=== PATIENT | female | born 1980 | race Caucasian/White ===

== ENCOUNTER 2017-05-01 14:36 | Emergency (ER) | payer OTHER ==
[2017-05-01 14:55] VITALS: BP 131/61; PULSE 62; RESP 18; TEMP 98.2
[2017-05-01] MEDS ORDERED: RX INFO: IV CONTRAST WAS GIVEN 1 EACH MISC MISCELLANE PRN (15:03)
--- NOTE | 2017-05-01 15:12 | ED ---
ENT HPI - General Chief complaint: ENT Stated complaint: throat pain Time Seen by Provider: 05/01/17 14:52 Source: patient Mode of arrival: ambulatory Limitations: no limitations - History of Present Illness Initial comments: 36-year-old female patient presents to the emergency department today for complaints of throat pain, anterior neck pain, and hoarse voice. The patient states that 2 nights ago she was standing at the sink when she passed out and struck the front of her neck on the sink counter. She states that since then she has been having pain in her throat, painful swallowing, and her voice is hoarse. She states that she initially did have some bruising to the area but that has resolved. She denies any difficulty breathing. She denies any posterior neck pain or difficulty with range of motion. She denies any numbness or tingling to her arms or legs. She states that she has passed out numerous times in the past and is currently being evaluated for the cause. She states that they're evaluating for narcolepsy but she has also had chronic anemia that could be a possible cause as well. She states her hemoglobin was checked today and was 11. She states that this is a good number for her. She says other than her throat and neck she is feeling well. She states that she is not here for evaluation of the syncope, but would like her throat evaluated. She denies any other injuries.Patient denies any headache, neck pain, back pain , chest pain, shortness of breath, dizziness, weakness, abdominal pain, nausea, vomiting, or difficulties with bowel movements or urination. - Related Data Allergies Allergy/AdvReac Type Severity Reaction Status Date / Time No Known Allergies Allergy Verified 05/01/17 14:55 Review of Systems ROS Statement: Those systems with pertinent positive or pertinent negative responses have been documented in the HPI. ROS Other: All systems not noted in ROS Statement are negative. Past Medical History Past Medical History: No Reported History History of Any Multi-Drug Resistant Organisms: None Reported Past Surgical History: No Surgical Hx Reported Past Psychological History: No Psychological Hx Reported Smoking Status: Former smoker Past Alcohol Use History: None Reported Past Drug Use History: None Reported General Exam Limitations: no limitations General appearance: alert, in no apparent distress, other (This is a well- developed, well-nourished adult female patient in no acute distress. Vital signs upon presentation 98.2F, pulse 62, respirations 18, blood pressure 131/61 , pulse ox 97% on room air.) Head exam: Present: atraumatic, normocephalic, normal inspection Eye exam: Present: normal appearance, PERRL, EOMI. Absent: scleral icterus, conjunctival injection, periorbital swelling ENT exam: Present: normal exam, normal oropharynx, mucous membranes moist, TM's normal bilaterally, other (Anterior neck is pink, warm, dry. No evidence of swelling, or ecchymosis. ) Neck exam: Present: normal inspection, full ROM, other (Nontender, no step-off, no deformity to firm midline palpation of the posterior cervical spine. Full range of motion without pain or limitation.). Absent: tenderness, meningismus, lymphadenopathy Respiratory exam: Present: normal lung sounds bilaterally. Absent: respiratory distress, wheezes, rales, rhonchi, stridor Cardiovascular Exam: Present: regular rate, normal rhythm, normal heart sounds. Absent: systolic murmur, diastolic murmur, rubs, gallop, clicks Back exam: Present: normal inspection, other (Nontender, no step-off, no deformity to firm midline palpation of the thoracic and lumbar vertebrae. Full range of motion without pain or limitation.). Absent: tenderness, vertebral tenderness Neurological exam: Present: alert, oriented X3, CN II-XII intact Psychiatric exam: Present: normal affect, normal mood Skin exam: Present: warm, dry, intact, normal color. Absent: rash Course Vital Signs 05/01/17 14:52 Temperature 98.2 F Pulse Rate 62 Respiratory 18 Rate Blood Pressure 131/61 O2 Sat by Pulse 97 Oximetry Medical Decision Making - Medical Decision Making 36 year-old female patient presented for evaluation of throat pain and hoarse voice after experiencing a fall and striking her neck on the counter. Physical exam is unremarkable. Patient has full range of motion without pain or limitation to the neck. Patient's swallow reflex is intact. Patient's voice is hoarse. CT of the neck showed masslike edema to the perform his sinus in the neck. Onset and presentation of symptoms is consistent with a traumatic injury however as other etiology cannot be ruled out we will send her to ears nose and throat for further evaluation. She was given a copy of the computed tomography scan to take with her to this appointment. She is instructed to apply ice outside the neck as well as to eat and drink cool foods and fluids. She is instructed to return here immediately if she develops any trouble breathing, fever, chills, or any other concerning symptoms. She verbalizes understanding and agrees with this plan. - Radiology Data Radiology results: report reviewed, image reviewed CT of the soft tissue neck with contrast report was read in its entirety. Impression by Dr. Bryant shows at the level of the left pyriformis sinus there is soft tissue masslike density as seen best on image 42 of 84. This may reflect postemetic edema. Amass of other etiology is not excluded. Correlate clinically. Correlate for cervical muscle spasticity. Disposition Clinical Impression: Throat injury Disposition: HOME SELF-CARE Condition: Good Additional Instructions: Throat injury. Drink cool liquids. Take antiinflammatory pain medications. Follow up with ears, nose, and throat specialist as soon as possible. Take CT image with you to your appointment. Return here immediately for development of trouble breathing, inability to swallow, fever, chills, or any other concerning symptom. Follow up with your primary care physician and supervisor contact lens as you have planned for further evaluation of the syncopal episodes. Referrals: None,Stated [Primary Care Provider] - 1-2 days Satya King MD [STAFF PHYSICIAN] - 1-2 days Time of Disposition: 15:58
--- NOTE | 2017-05-01 15:42 | CT ---
EXAMINATION TYPE: CT soft tissue neck w con DATE OF EXAM: 05/01/2017 COMPARISON: NONE HISTORY: Fell 2 days ago, hitting throat on counter. CT DLP: 605.00 mGycm CONTRAST: CT scan of the neck is performed with IV Contrast, patient injected with 100 mL of Omnipaque 300. Contrast enhanced CT of the neck was performed from the skull base through the lung apices. AIRWAY: At the level of the left piriform sinus there is soft tissue masslike density as seen best on image 42 of 84. This may reflect posttraumatic edema. Mass of other etiology is not excluded. Remain ing airway appears to be unremarkable. Visualized hyoid bone and cricoid as well as thyroid cartilage s appear to be grossly intact. SALIVARY GLANDS: The submandibular and parotid glands are free of mass or inflammatory process. THYROID GLAND: No nodules or masses seen. LYMPH NODES: No adenopathy seen greater than 1cm. LUNG APICES: No nodule or mass is seen. OTHER: Vascular structures are patent. No significant degenerative change of the cervical spine. Re versal of the normal cervical lordosis can be seen in patients with muscle spasticity. No abscess see n. IMPRESSION: 1.At the level of the left piriform sinus there is soft tissue masslike density as seen best on image 42 of 84. This may reflect posttraumatic edema. Mass of other etiology is not excluded. Correlate cl inically. 2. Correlate for cervical muscle spasticity.
== END 2017-05-01 16:04 | disposition home or self-care (01) ==
LOC: EC 14:36
DX: S19.9XXA Unspecified injury of neck, initial encounter (principal); Z87.891 Personal history of nicotine dependence; W01.198A Fall on same level from slipping, tripping and stumbling with subsequent striking against other object, initial encounter
CPT/HCPCS: 70491; 99283; Q9967